=== PATIENT | female | born 1970 | race Hispanic/Latino ===

== ENCOUNTER 2020-03-02 12:37 | Emergency (ER) | payer BC, OTHER ==
[2020-03-03 12:02] LABS: SARS-CoV-2 MS2 Positive; SARS-CoV-2 N Gene Positive; SARS-CoV-2 S Gene Positive; SARS-CoV-2 by NAA DETECTED (NotDetected); SARS-CoV-2 orf1ab Positive
== END 2020-03-02 12:51 | disposition home or self-care (01) ==
LOC: ERS 12:37
DX: U07.1 COVID-19 (principal); E03.9 Hypothyroidism, unspecified; E11.9 Type 2 diabetes mellitus without complications; D50.9 Iron deficiency anemia, unspecified; I10 Essential (primary) hypertension; E78.5 Hyperlipidemia, unspecified; Z87.891 Personal history of nicotine dependence
CPT/HCPCS: 87635; 99283; U0003

== ENCOUNTER 2020-04-03 09:08 | Emergency (ER) | payer BC, OTHER ==
[2020-04-03 18:04] LABS: SARS-CoV-2 MS2 Positive; SARS-CoV-2 N Gene Positive; SARS-CoV-2 S Gene Positive; SARS-CoV-2 by NAA DETECTED (NotDetected); SARS-CoV-2 orf1ab Positive
== END 2020-04-03 09:41 | disposition home or self-care (01) ==
LOC: ERS 09:08
DX: U07.1 COVID-19 (principal); E03.9 Hypothyroidism, unspecified; D50.9 Iron deficiency anemia, unspecified; E11.9 Type 2 diabetes mellitus without complications; E78.5 Hyperlipidemia, unspecified; I10 Essential (primary) hypertension; Z87.891 Personal history of nicotine dependence
CPT/HCPCS: 87635; 99283; U0003

== ENCOUNTER 2020-04-19 12:34 | Emergency (ER) | payer BC, OTHER | END 2020-04-19 13:45 | disposition home or self-care (01) | LOC: ERS 12:34 | DX: U07.1 COVID-19 (principal); E03.9 Hypothyroidism, unspecified; D50.9 Iron deficiency anemia, unspecified; E11.9 Type 2 diabetes mellitus without complications; I10 Essential (primary) hypertension; E78.5 Hyperlipidemia, unspecified; Z87.891 Personal history of nicotine dependence; Z79.84 Long term (current) use of oral hypoglycemic drugs; Z79.899 Other long term (current) drug therapy | CPT/HCPCS: 99282 ==

== ENCOUNTER 2020-06-02 09:24 | Emergency (ER) | payer BC, OTHER ==
[2020-06-02 14:13] LABS: SARS-CoV-2 MS2 Positive; SARS-CoV-2 N Gene Negative; SARS-CoV-2 S Gene Negative; SARS-CoV-2 by NAA Not Detected (NotDetected); SARS-CoV-2 orf1ab Negative
== END 2020-06-02 09:50 | disposition home or self-care (01) ==
LOC: ERS 09:24
DX: Z09 Encounter for follow-up examination after completed treatment for conditions other than malignant neoplasm (principal); Z86.19 Personal history of other infectious and parasitic diseases; E03.9 Hypothyroidism, unspecified; D50.9 Iron deficiency anemia, unspecified; E11.9 Type 2 diabetes mellitus without complications; I10 Essential (primary) hypertension; Z87.891 Personal history of nicotine dependence; Z79.84 Long term (current) use of oral hypoglycemic drugs; Z79.899 Other long term (current) drug therapy
CPT/HCPCS: 87635; 99283; U0003

== ENCOUNTER 2020-11-03 12:23 | Emergency (ER) | payer BC ==
[2020-11-03] MEDS ORDERED: Ciprofloxacin HCL/Dexameth Otic Drops 7.5 ml Bottle ONE (13:28)
[2020-11-03 13:37] LABS: #Eosinphils 0.1 thou/uL (0.0-0.7); #Lymphocytes 0.9 thou/uL (1.20-3.40); #Monocytes 0.5 thou/uL (0.11-0.59); #Neutrophils 10.3 thou/uL (1.40-6.50); %Basophils 0.1 % (0.0-1.0); %Eosinophils 0.8 % (0.0-10.0); %Lymphocytes 7.6 % (21.0-51.0); %Monocytes 4.2 % (0.0-10.0); %Neutrophils 87.3 % (42.0-75.0); Hemoglobin 14.2 g/dL (12.0-16.0); Mean Corpuscular HGB CONC 35.8 g/dL (32.0-36.0); Mean Corpuscular Hemoglobin 31.7 pg (27.0-31.0); Mean Corpuscular Volume 88.6 fL (78.0-98.0); Mean Platelet Volume 8.4 fL (7.4-10.4); Platelet Count 178 thou/uL (130-400); RBC Distribution Width 11.2 % (11.5-14.5); Red Blood Cell (RBC) Count 4.46 mill/uL (4.20-5.40); White Blood Cell (WBC) Count 11.8 thou/uL (4.8-10.8)
[2020-11-03 13:52] LABS: BHCG - Serum Negative (NEGATIVE); Pregs Control Background? CLEAR/WHITE (CLR/WHITE); Pregs Control Bar Appear? YES (CONTROL BAR)
[2020-11-03 14:03] LABS: ALT (SGPT) 16 U/L (8-55); AST (SGOT) 16 U/L (5-34); Albumin 3.8 g/dL (3.5-5.0); Alkaline Phosphatase 120 U/L (40-110); Anion Gap 13 mmol/L (10-20); BUN (Urea Nitrogen) 18 mg/dL (7.0-18.7); Bilirubin, Total 0.6 mg/dL (0.2-1.2); Calc. Creatinine Clearance 0 mL/min (70-130); Calcium 8.8 mg/dL (7.8-10.44); Carbon Dioxide 25 mmol/L (22-29); Chloride 102 mmol/L (98-107); Glucose 357 mg/dL (70-105); Potassium 3.6 mmol/L (3.5-5.1); Protein, Total 6.8 g/dL (6.0-8.3); Sodium 136 mmol/L (136-145)
== END 2020-11-03 15:18 | disposition home or self-care (01) ==
LOC: ERS 12:23
DX: H60.92 Unspecified otitis externa, left ear (principal); R11.2 Nausea with vomiting, unspecified; D50.9 Iron deficiency anemia, unspecified; E11.9 Type 2 diabetes mellitus without complications; E78.5 Hyperlipidemia, unspecified; I10 Essential (primary) hypertension; E03.9 Hypothyroidism, unspecified
CPT/HCPCS: 36415; 80053; 84484; 84703; 85025; 93005

== ENCOUNTER 2022-08-04 10:38 | Inpatient (IN) | payer BC, SELFPAY ==
[2022-08-04] MEDS ORDERED: Iopamidol-370 76% 500 ML 1 ML ONE (11:12)
[2022-08-04 11:47] LABS: #Eosinphils 0.1 thou/uL (0.0-0.7); #Lymphocytes 1.5 thou/uL (1.20-3.40); #Monocytes 0.4 thou/uL (0.11-0.59); #Neutrophils 6.4 thou/uL (1.40-6.50); %Eosinophils 0.9 % (0.0-10.0); %Lymphocytes 18.3 % (21.0-51.0); %Monocytes 4.2 % (0.0-10.0); %Neutrophils 76.6 % (42.0-75.0); Hemoglobin 16.4 g/dL (12.0-16.0); Mean Corpuscular HGB CONC 35.3 g/dL (32.0-36.0); Mean Corpuscular Hemoglobin 30.8 pg (27.0-31.0); Mean Corpuscular Volume 87.2 fl (78.0-98.0); Mean Platelet Volume 9.1 fL (7.4-10.4); Platelet Count 172 10x3/uL (130-400); RBC Distribution Width 11.8 % (11.5-14.5); Red Blood Cell (RBC) Count 5.33 mill/uL (4.20-5.40); White Blood Cell (WBC) Count 8.4 10x3/uL (4.8-10.8)
[2022-08-04 12:15] LABS: ALT (SGPT) 12 U/L (8-55); AST (SGOT) 14 U/L (5-34); Albumin 3.8 g/dL (3.5-5.0); Alkaline Phosphatase 123 U/L (40-110); Anion Gap 15 mmol/L (10-20); BUN (Urea Nitrogen) 17 mg/dL (7.0-18.7); Bilirubin, Total 0.7 mg/dL (0.2-1.2); Calc. Creatinine Clearance 0 mL/min (70-130); Calcium 9.2 mg/dL (7.8-10.44); Carbon Dioxide 22 mmol/L (22-29); Chloride 102 mmol/L (98-107); Estimated GFR 100; Globulin 3.2 g/dL (2.4-3.5); Glucose 352 mg/dL (70-105); Magnesium 1.6 mg/dL (1.6-2.6); Sodium 135 mmol/L (136-145)
[2022-08-04] MEDS ORDERED: Lisinopril/Hydrochlorothiazide 20/25 mg Tablet PO SCH (13:15)
[2022-08-04] MEDS ORDERED: Metoclopramide HCl 10 MG/2 ML VIAL ONE (14:06)
[2022-08-04] MEDS ORDERED: diphenhydrAMINE 50 MG/ML VIAL ONE (14:06)
[2022-08-04] MEDS ORDERED: Ketorolac Tromethamine 30 MG/ML VIAL ONE (14:06)
[2022-08-04] MEDS ORDERED: hydrALAZINE 20 MG/ML VIAL ONE (14:21)
[2022-08-04] MEDS ORDERED: Dextrose 50% Abboject 50 ML SYRINGE SLOW IVP PRN (16:18)
[2022-08-04] MEDS ORDERED: Dextrose 5% in Water 1,000 ML IV PRN (16:18)
[2022-08-04] MEDS ORDERED: HumaLOG 300 UNITS/3 ML VIAL SC PRN (16:28)
[2022-08-04] MEDS ORDERED: hydrALAZINE 20 MG/ML VIAL SLOW IVP PRN (16:59)
[2022-08-04 17:00] LABS: Hemoglobin A1c 11.5 % (4.0-6.0)
[2022-08-04 17:04] LABS: Cardiac Risk 5.3 (Less than 4.5)
[2022-08-04] MEDS ORDERED: Fluorescein Opthalmic Strip ONE (17:15)
[2022-08-04] MEDS ORDERED: Proparacaine 0.5% Opth 15 ML BOT ONE (17:15)
[2022-08-04] MEDS ORDERED: Aspirin 325 mg Enteric Coated Tablet PO SCH (18:00)
[2022-08-04 18:49] VITALS: BMI 27.8
[2022-08-04] MEDS ORDERED: Insulin Glargine 30 UNITS/0.3 ML VIAL SC SCH (21:00)
[2022-08-04] MEDS: Atorvastatin Calcium 40 MG TAB PO SCH (21:33)
[2022-08-04] MEDS: HumaLOG 300 UNITS/3 ML VIAL SC PRN (21:44)
[2022-08-05 05:52] LABS: ALT (SGPT) 13 U/L (8-55); AST (SGOT) 12 U/L (5-34); Albumin 3.2 g/dL (3.5-5.0); Alkaline Phosphatase 103 U/L (40-110); Anion Gap 10 mmol/L (10-20); BUN (Urea Nitrogen) 28 mg/dL (7.0-18.7); Bilirubin, Total 0.6 mg/dL (0.2-1.2); Calc. Creatinine Clearance 99 mL/min (70-130); Calcium 8.8 mg/dL (7.8-10.44); Carbon Dioxide 27 mmol/L (22-29); Estimated GFR 99; Globulin 2.7 g/dL (2.4-3.5); Glucose 281 mg/dL (70-105); Potassium 3.6 mmol/L (3.5-5.1); Protein, Total 5.9 g/dL (6.0-8.3); Sodium 136 mmol/L (136-145)
[2022-08-05 05:53] LABS: #Eosinphils 0.2 thou/uL (0.0-0.7); #Lymphocytes 2.6 thou/uL (1.20-3.40); #Monocytes 0.5 thou/uL (0.11-0.59); #Neutrophils 4.7 thou/uL (1.40-6.50); %Basophils 0.4 % (0.0-1.0); %Lymphocytes 32.7 % (21.0-51.0); %Monocytes 6.3 % (0.0-10.0); %Neutrophils 58.6 % (42.0-75.0); Hemoglobin 14.5 g/dL (12.0-16.0); Mean Corpuscular HGB CONC 35.4 g/dL (32.0-36.0); Mean Corpuscular Hemoglobin 31.1 pg (27.0-31.0); Mean Corpuscular Volume 87.9 fl (78.0-98.0); Mean Platelet Volume 9.6 fL (7.4-10.4); Platelet Count 166 10x3/uL (130-400); RBC Distribution Width 11.9 % (11.5-14.5); Red Blood Cell (RBC) Count 4.66 mill/uL (4.20-5.40)
[2022-08-05 06:00] LABS: Chloride 103 mmol/L (98-107)
[2022-08-05] MEDS: HumaLOG 300 UNITS/3 ML VIAL SC PRN ×4 (06:20→20:52)
[2022-08-05] MEDS ORDERED: metFORMIN 500 MG TAB PO SCH (08:00)
[2022-08-05] MEDS ORDERED: Insulin Glargine 30 UNITS/0.3 ML VIAL SC SCH ×2 (08:15→21:00)
[2022-08-05] MEDS: Lisinopril/Hydrochlorothiazide 20/25 mg Tablet PO SCH (09:49)
[2022-08-05] MEDS ORDERED: Magnevist 469MG/ML 20 ML VIAL ONE ×2 (11:16)
[2022-08-05] MEDS: Atorvastatin Calcium 40 MG TAB PO SCH (20:52)
[2022-08-06] MEDS: HumaLOG 300 UNITS/3 ML VIAL SC PRN (05:40)
[2022-08-06 05:50] LABS: #Eosinphils 0.3 thou/uL (0.0-0.7); #Lymphocytes 1.9 thou/uL (1.20-3.40); #Monocytes 0.5 thou/uL (0.11-0.59); #Neutrophils 5.1 thou/uL (1.40-6.50); %Basophils 0.4 % (0.0-1.0); %Eosinophils 3.2 % (0.0-10.0); %Lymphocytes 24.7 % (21.0-51.0); %Monocytes 6.1 % (0.0-10.0); %Neutrophils 65.7 % (42.0-75.0); Hemoglobin 14.1 g/dL (12.0-16.0); Mean Corpuscular HGB CONC 35.6 g/dL (32.0-36.0); Mean Corpuscular Hemoglobin 31.6 pg (27.0-31.0); Mean Corpuscular Volume 88.6 fl (78.0-98.0); Mean Platelet Volume 8.9 fL (7.4-10.4); Platelet Count 158 10x3/uL (130-400); RBC Distribution Width 11.9 % (11.5-14.5); Red Blood Cell (RBC) Count 4.46 mill/uL (4.20-5.40); White Blood Cell (WBC) Count 7.8 10x3/uL (4.8-10.8)
[2022-08-06 06:21] LABS: Anion Gap 11 mmol/L (10-20); BUN (Urea Nitrogen) 29 mg/dL (7.0-18.7); Calc. Creatinine Clearance 108 mL/min (70-130); Calcium 9.1 mg/dL (7.8-10.44); Carbon Dioxide 27 mmol/L (22-29); Chloride 101 mmol/L (98-107); Estimated GFR 106; Glucose 234 mg/dL (70-105); Potassium 3.5 mmol/L (3.5-5.1); Sodium 135 mmol/L (136-145)
[2022-08-06] MEDS ORDERED: metFORMIN 500 MG TAB PO SCH ×3 (08:24→17:00)
[2022-08-06] MEDS ORDERED: Insulin Glargine 30 UNITS/0.3 ML VIAL SC SCH (08:28)
[2022-08-06] MEDS: Lisinopril/Hydrochlorothiazide 20/25 mg Tablet PO SCH (09:49)
[2022-08-06 12:14] VITALS: BP 120/78; TEMP 97
== END 2022-08-06 14:15 | disposition home or self-care (01) | DRG 123 ==
LOC: ERS 10:38 → NEURO 16:05
PROVIDERS: ADMIT Student in an Organized Health Care Education/Training Program; ATTEND Student in an Organized Health Care Education/Training Program
DX: H49.00 Third [oculomotor] nerve palsy, unspecified eye (principal); E03.9 Hypothyroidism, unspecified; I10 Essential (primary) hypertension; D50.9 Iron deficiency anemia, unspecified; I16.0 Hypertensive urgency; E11.65 Type 2 diabetes mellitus with hyperglycemia; E11.43 Type 2 diabetes mellitus with diabetic autonomic (poly)neuropathy; K31.84 Gastroparesis; Z79.4 Long term (current) use of insulin; Z79.84 Long term (current) use of oral hypoglycemic drugs; Z79.899 Other long term (current) drug therapy; Z79.890 Hormone replacement therapy
CPT/HCPCS: 36415; 36416; 70496; 70543; 70553; 80048; 80053; 80061; 83036; 83605; 83735; 84443; 85025; 85652; 86140; 96374; 96375; A9579; J0360; J1200; J1815; J1885; J2765; Q9967; U0003; U0005

== ENCOUNTER 2022-08-07 20:05 | Emergency (ER) | payer SELFPAY ==
[2022-08-07] MEDS ORDERED: Ondansetron ODT 4 MG TAB ONE (20:38)
[2022-08-07] MEDS ORDERED: Ondansetron PF 4 MG/2 ML Vial ONE (22:05)
[2022-08-07 22:31] LABS: #Eosinphils 0.1 thou/uL (0.0-0.7); #Lymphocytes 1.5 thou/uL (1.20-3.40); #Monocytes 0.4 thou/uL (0.11-0.59); #Neutrophils 6.1 thou/uL (1.40-6.50); %Basophils 0.2 % (0.0-1.0); %Eosinophils 1.1 % (0.0-10.0); %Lymphocytes 18.1 % (21.0-51.0); %Monocytes 4.7 % (0.0-10.0); Hemoglobin 15.2 g/dL (12.0-16.0); Mean Corpuscular HGB CONC 35.1 g/dL (32.0-36.0); Mean Corpuscular Hemoglobin 30.8 pg (27.0-31.0); Mean Corpuscular Volume 87.5 fl (78.0-98.0); Mean Platelet Volume 9.6 fL (7.4-10.4); Platelet Count 172 10x3/uL (130-400); RBC Distribution Width 11.8 % (11.5-14.5); Red Blood Cell (RBC) Count 4.93 mill/uL (4.20-5.40)
[2022-08-07 22:49] LABS: ALT (SGPT) 8 U/L (8-55); AST (SGOT) 14 U/L (5-34); Albumin 3.9 g/dL (3.5-5.0); Alkaline Phosphatase 116 U/L (40-110); Anion Gap 10 mmol/L (10-20); BUN (Urea Nitrogen) 20 mg/dL (7.0-18.7); Bilirubin, Total 0.5 mg/dL (0.2-1.2); Calc. Creatinine Clearance 0 mL/min (70-130); Calcium 8.7 mg/dL (7.8-10.44); Carbon Dioxide 28 mmol/L (22-29); Chloride 101 mmol/L (98-107); Estimated GFR 105; Globulin 2.9 g/dL (2.4-3.5); Glucose 333 mg/dL (70-105); Potassium 4.3 mmol/L (3.5-5.1); Protein, Total 6.8 g/dL (6.0-8.3); Sodium 135 mmol/L (136-145)
== END 2022-08-07 23:42 | disposition home or self-care (01) ==
LOC: ERS 20:05
DX: R11.10 Vomiting, unspecified (principal); E86.0 Dehydration; E11.9 Type 2 diabetes mellitus without complications; I10 Essential (primary) hypertension; E03.9 Hypothyroidism, unspecified; E78.00 Pure hypercholesterolemia, unspecified; D58.9 Hereditary hemolytic anemia, unspecified; Z79.84 Long term (current) use of oral hypoglycemic drugs; Z79.899 Other long term (current) drug therapy
CPT/HCPCS: 80053; 82010; 85025; 96374; J2405; Q0162